=== PATIENT | female | born 1965 | race African-American/Black ===

== ENCOUNTER 2020-10-28 09:11 | Emergency (ER) | payer OTHER ==
[~2020-10-28] VITALS: Ht 160 cm; Wt 81.8 kg
[2020-10-28 10:37] LABS: CALCIUM 9.2 mg/dL (8.4-10.2); CREATININE, serum 0.87 (0.52-1.25); POTASSIUM 3.8 mmol/L (3.4-5.0)
[2020-10-28] MEDS ORDERED: ZOFRAN ODT4 MG PO (10:54)
[2020-10-28 11:14] VITALS: BP 153/81; PULSE 79; TEMP 99
== END 2020-10-28 11:17 | disposition home or self-care (01) ==
LOC: COL.ER 09:11
PROVIDERS: Emergency Medicine
DX: U07.1 COVID-19 (principal); E86.0 Dehydration
CPT/HCPCS: J2405; J7030

== ENCOUNTER 2022-12-26 17:11 | Emergency (ER) | payer MEDICAID ==
[~2022-12-26] VITALS: Ht 160 cm; Wt 90.0 kg
[~2022-12-26 17:11] MED LIST: BUSPAR10 MG PO; CATAPRES 0.1MG0.1 MG PO; INDERAL40 MG PO; PRILOSEC 20MG20 MG PO; PROTONIX 40MG T40 MG PO; REMERON 15M15 MG/TA1 PO; ZOFRAN ODT4 MG PO; ZOLOFT 100MG100 MG PO
[2022-12-26 17:37] VITALS: BP 135/102; PULSE 69; TEMP 98.3
[2022-12-27] MEDS ORDERED: TRIAMCINOLONE A15 GM TP (10:50)
== END 2022-12-26 19:06 | disposition left against medical advice (07) ==
LOC: COL.ER 17:11
DX: L29.9 Pruritus, unspecified (principal)

== ENCOUNTER → 2023-01-09 | Outpatient (CLI) | payer MEDICAID ==
[~2023-01-09] MED LIST changes: +TRIAMCINOLONE A15 GM TP
== END ==
LOC: COL.RAD 11:32
DX: R14.0 Abdominal distension (gaseous) (principal); R11.0 Nausea; Z90.49 Acquired absence of other specified parts of digestive tract

== ENCOUNTER → 2023-05-09 | Outpatient (CLI) | payer MEDICAID | LOC: MC.RAD 09:53 | DX: Z12.31 Encounter for screening mammogram for malignant neoplasm of breast (principal) ==

== ENCOUNTER 2023-12-11 08:35 | Emergency (ER) | payer MEDICAID ==
[~2023-12-11] VITALS: Ht 160 cm; Wt 90.9 kg
[2023-12-11 08:39] VITALS: BP 141/99; TEMP 98.7
[2023-12-11 10:34] VITALS: PULSE 74
--- NOTE | 2023-12-11 10:53 | NUR ---
[employer] received a call for patient who is needs crutches however cannot afford them. ELMER contacted [facility] and completed a voucher for $36.92. SW faxed voucher to [facility] and also provided a copy to patient. Patient stated she is able to pick them up after her discharge.
== END 2023-12-11 10:34 | disposition home or self-care (01) ==
LOC: COL.ER 08:35
DX: S80.02XA Contusion of left knee, initial encounter (principal); S80.812A Abrasion, left lower leg, initial encounter; Y04.8XXA Assault by other bodily force, initial encounter; Y92.410 Unspecified street and highway as the place of occurrence of the external cause